=== PATIENT | male | born 1945 ===

== ENCOUNTER → 2020-12-20 | Outpatient (CLI) | payer MEDICARE ==
[~2020-12-20] MED LIST: HUMULIN R100 UNIT/2 SC; INSULANPEN SC; LANS30EC PO; METF500C PO
[2020-12-20 12:37] LABS: Source, Urine Clean Catch
[2020-12-20 15:11] LABS: Appearance, Urine Hazy (Clear); Bilirubin, Urine Neg (Neg); Blood, Urine 5+ (Neg); Color, Urine Yellow (P-Yellow); Glucose Qualitative, Urine 4+ (Neg); Ketones, Urine Neg (Neg); Leukocyte Esterase, Urine 3+ (Neg); Nitrite, Urine Neg (Neg); Protein, Urine 3+ (Neg); Specific Gravity, Urine 1.025 (1.003-1.022); Urobilinogen, Urine NORM (Normal)
[2020-12-20 15:31] LABS: Granular Casts 0-2 /lpf (0); White Blood Cells, Urine 25-50 /hpf (0-5)
[2020-12-20 15:32] LABS: Bacteria Many /hpf; Squamous Epithelial Cells Rare /hpf (Few)
== END | disposition home or self-care (01) ==
LOC: LAB SHORT 12:33
PROVIDERS: Internal Medicine
DX: N39.46 Mixed incontinence (principal)
CPT/HCPCS: 81001; 87077; 87086; 87186